=== PATIENT | female | born 2000 | race African-American/Black ===

== ENCOUNTER 2023-01-18 18:47 | Inpatient (IN) | payer MEDICAID ==
[2023-01-18 19:18] VITALS: BMI 43.7
[2023-01-18] MEDS ORDERED: Ibuprofen 800 MG TAB PO PRN (21:18)
[2023-01-18] MEDS ORDERED: Tranexamic Acid 1,000 MG in Sodium Chloride 0.9% 250 ML 250 ML IVPB PRN (21:18)
[2023-01-18] MEDS ORDERED: Butorphanol Tartrate 1 MG/ML VIAL SLOW IVP PRN (21:18)
[2023-01-18] MEDS ORDERED: Acetaminophen 500 MG TAB PO PRN (21:18)
[2023-01-18] MEDS ORDERED: Misoprostol 200 MCG TAB PR PRN (21:18)
[2023-01-18] MEDS ORDERED: Carboprost 250 MCG/ML AMP IM PRN (21:18)
[2023-01-18] MEDS ORDERED: Methylergonovine 0.2 MG/ML VIAL IM PRN (21:18)
[2023-01-18] MEDS ORDERED: Lidocaine 1% (PF) 30 ML VIAL SC PRN (21:18)
[2023-01-18] MEDS ORDERED: Promethazine HCl 25 MG/ML VIAL IM PRN (21:18)
[2023-01-18] MEDS ORDERED: hydrALAZINE 20 MG/ML VIAL SLOW IVP PRN (21:18)
[2023-01-18] MEDS ORDERED: Ondansetron PF 4 MG/2 ML Vial IVP PRN (21:18)
[2023-01-18] MEDS ORDERED: NS w/ Oxytocin 30 units 500 ML IV SCH ×2 (21:30)
[2023-01-18] MEDS ORDERED: Penicillin G Potassium 5 MILL.UNITS in Sodium Chloride 0.9% 100 ML IVPB SCH (23:45)
[2023-01-19] MEDS ORDERED: Penicillin G Potassium 5 MILL.UNITS VIAL ONE (00:16)
[2023-01-19 00:23] LABS: Anion Gap 15 mmol/L (10-20); BUN (Urea Nitrogen) 8 mg/dL (7.0-18.7); Calc. Creatinine Clearance 314 mL/min (70-130); Carbon Dioxide 18 mmol/L (22-29); Chloride 107 mmol/L (98-107); Potassium 4.1 mmol/L (3.5-5.1); Sodium 136 mmol/L (136-145)
[2023-01-19 00:24] LABS: ALT (SGPT) 10 U/L (8-55); AST (SGOT) 14 U/L (5-34); Albumin 3.5 g/dL (3.5-5.0); Alkaline Phosphatase 136 U/L (40-110); Bilirubin, Total 0.3 mg/dL (0.2-1.2); Calcium 9.3 mg/dL (7.8-10.44); Estimated GFR 130; Globulin 3.1 g/dL (2.4-3.5); Glucose 101 mg/dL (70-105); Protein, Total 6.6 g/dL (6.0-8.3)
[2023-01-19 00:34] LABS: Mean Corpuscular HGB CONC 32.9 g/dL (32.0-36.0); Mean Corpuscular Hemoglobin 28.4 pg (27.0-33.0); Mean Corpuscular Volume 86.3 fl (81.6-98.3); Mean Platelet Volume 11.2 fl (7.4-10.4); Platelet Count 315 10x3/uL (150-450); RBC Distribution Width 15.1 % (11.5-14.5); Red Blood Cell (RBC) Count 4.23 10x6/uL (3.90-5.03); White Blood Cell (WBC) Count 12.3 10x3/uL (3.5-10.5)
[2023-01-19 00:44] LABS: HBSAg Index 0.12 S/CO (0-0.99); HIV (1/2) Antibody/Antigen Non-Reactive (NonReactive); HIV 1/2 INDEX 0.09 S/CO (<1.00); Hep B Surf Ag Non-Reactive S/CO (NonReactive); Thyroid Stimulating Hormone 0.3799 uIU/mL (0.35-4.94)
[2023-01-19 00:46] LABS: Syphilis Antibody Nonreactive (Nonreactive); Syphilis Antibody Index 0.02 S/CO (<1.00 Non-Reactive)
[2023-01-19 01:14] LABS: Amphetamine Not Detected (NotDetected); Barbiturates Screen Not Detected (NotDetected); Benzodiazepine Screen Not Detected (NotDetected); Cocaine Metabolite Screen Not Detected (NotDetected); Methadone Not Detected (NotDetected); Methamphetamine Not Detected (NotDetected); Opiate Screen Not Detected (NotDetected); Oxycodone Screen Not Detected (NotDetected); Phencyclidine (PCP) Not Detected (NotDetected); THC/Cannabinoid Screen Not Detected (NotDetected); Tricyclic Screen Not Detected (NotDetected)
[2023-01-19 01:20] LABS: Creatinine, Urine 94.75 mg/dL (47-110); Protein, Urine Random Quant Less than 10 mg/dL (1-14)
[2023-01-19 01:48] LABS: SARS-CoV-2 NAA Rapid Test Not Detected (NotDetected)
[2023-01-19] MEDS ORDERED: CEFAZOLIN 2 GM VIAL ONE (02:09)
[2023-01-19] MEDS ORDERED: Famotidine/PF 20 mg/2ml Vial ONE (02:09)
[2023-01-19] MEDS ORDERED: Phenylephrine 40 MG/NS 250 ML 250 ML ONE (02:33)
[2023-01-19] MEDS ORDERED: Morphine PF 10 MG/10 ML VIAL ONE (02:33)
[2023-01-19] MEDS ORDERED: PHENYLEPHRINE-NS 100 MCG/ML 10 ML SYRINGE ONE ×2 (02:33→05:33)
[2023-01-19] MEDS ORDERED: Oxytocin 10 UNITS/ML VIAL ONE ×3 (02:33→06:08)
[2023-01-19] MEDS ORDERED: Ondansetron PF 4 MG/2 ML Vial ONE ×2 (02:33→05:30)
[2023-01-19] MEDS ORDERED: Ketorolac Tromethamine 30 MG/ML VIAL ONE (05:33)
[2023-01-19 06:11] LABS: HBSAg Index 0.14 S/CO (0-0.99); Hep B Surf Ag Non-Reactive S/CO (NonReactive)
[2023-01-19] MEDS ORDERED: Ketorolac Tromethamine 30 MG/ML VIAL IVP PRN (06:38)
[2023-01-19] MEDS ORDERED: Naloxone HCl 0.4 mg/ml Vial IV PRN ×2 (06:38→08:51)
[2023-01-19] MEDS ORDERED: diphenhydrAMINE 50 MG/ML VIAL IVP PRN ×2 (06:38→08:51)
[2023-01-19] MEDS ORDERED: Moisturizing Cream (Eucerin) 113 GM JAR TOP PRN ×2 (06:38→08:51)
[2023-01-19] MEDS ORDERED: Promethazine HCl 25 MG/ML VIAL IM PRN ×2 (06:38→08:51)
[2023-01-19] MEDS ORDERED: Ondansetron PF 4 MG/2 ML Vial IVP PRN ×3 (06:38→16:10)
[2023-01-19] MEDS ORDERED: Promethazine HCl 25 MG SUPP PR PRN ×2 (06:38→08:51)
[2023-01-19] MEDS ORDERED: Naloxone HCl 0.4 mg/ml Vial IVP PRN ×4 (06:38→08:51)
[2023-01-19] MEDS ORDERED: Communication Order-Pharmacy FS SCH ×2 (06:45→09:00)
[2023-01-19] MEDS ORDERED: Ondansetron HCl/PF 4 MG/2 ML Vial IVP PRN (08:51)
[2023-01-19] MEDS ORDERED: Fentanyl 100 MCG/2 ML VIAL SLOW IVP PRN (08:51)
[2023-01-19] MEDS ORDERED: Meperidine HCl/PF 25 MG/ML VIAL SLOW IVP PRN (08:51)
[2023-01-19] MEDS ORDERED: Ketorolac Tromethamine 30 MG/ML VIAL IVP SCH (09:00)
[2023-01-19] MEDS ORDERED: Meperidine HCl/PF 25 MG/ML VIAL ONE (09:28)
[2023-01-19] MEDS: Misoprostol 100 MCG TAB VAG SCH ×3 (12:33→16:23)
[2023-01-19] MEDS: Penicillin G 2.5 MILL.units 2.5 MILL.UNITS in Premix Bag 1 BAG IVPB SCH ×4 (12:36→16:25)
[2023-01-19] MEDS: Ketorolac Tromethamine 30 MG/ML VIAL IVP PRN ×2 (13:06→20:49)
[2023-01-19 14:04] LABS: Hep C IgG Ab Non-Reactive (NonReactive); Hep C Index 0.06 S/CO (0-0.79)
[2023-01-19] MEDS: Lactated Ringer's 1,000 ML IV SCH ×3 (15:55→16:24)
[2023-01-19] MEDS ORDERED: Misoprostol 200 MCG TAB PR PRN (16:10)
[2023-01-19] MEDS ORDERED: hydrALAZINE 20 MG/ML VIAL SLOW IVP PRN (16:10)
[2023-01-19] MEDS ORDERED: Boostrix 0.5 ML (Tdap) VIAL (>/=7 yrs of age) IM ONE (16:10)
[2023-01-19] MEDS ORDERED: Docusate 100 MG CAP PO SCH (16:30)
[2023-01-19] MEDS: HYDROcodone/Acetaminophen 5/325 mg Tablet PO PRN (20:50)
[2023-01-20 04:47] LABS: Hemoglobin 9.9 g/dL (12.0-15.5); Mean Corpuscular HGB CONC 32.1 g/dL (32.0-36.0); Mean Corpuscular Hemoglobin 28.2 pg (27.0-33.0); Mean Corpuscular Volume 87.7 fl (81.6-98.3); Platelet Count 282 10x3/uL (150-450); RBC Distribution Width 14.8 % (11.5-14.5); Red Blood Cell (RBC) Count 3.51 10x6/uL (3.90-5.03); White Blood Cell (WBC) Count 15.9 10x3/uL (3.5-10.5)
[2023-01-20] MEDS: HYDROcodone/Acetaminophen 5/325 mg Tablet PO PRN ×4 (05:24→22:17)
[2023-01-20] MEDS: Simethicone Chewable 80 MG TAB PO PRN (05:25)
[2023-01-20] MEDS: Ibuprofen 800 MG TAB PO SCH ×3 (05:25→22:17)
[2023-01-20] MEDS: Ferrous Sulfate 325 MG TAB PO SCH ×2 (08:36→22:18)
[2023-01-20] MEDS: Docusate 100 MG CAP PO SCH ×2 (08:36→22:18)
[2023-01-20] MEDS ORDERED: Ibuprofen 800 MG TAB PO PRN (13:00)
[2023-01-21] MEDS: Ibuprofen 800 MG TAB PO SCH ×3 (06:02→21:06)
[2023-01-21] MEDS: Simethicone Chewable 80 MG TAB PO PRN (06:02)
[2023-01-21] MEDS: HYDROcodone/Acetaminophen 5/325 mg Tablet PO PRN ×4 (06:02→17:38)
[2023-01-21] MEDS: Docusate 100 MG CAP PO SCH ×2 (08:19→21:06)
[2023-01-21] MEDS: Ferrous Sulfate 325 MG TAB PO SCH ×2 (08:19→21:06)
[2023-01-21] MEDS ORDERED: Calcium Carbonate 500 MG ChewTAB PO PRN (20:47)
[2023-01-22] MEDS ORDERED: Aspirin/APAP/Caffeine Tab (Excedrin Migraine) PO PRN (05:33)
[2023-01-22] MEDS: Ibuprofen 800 MG TAB PO SCH ×2 (05:37→17:02)
[2023-01-22] MEDS: Ferrous Sulfate 325 MG TAB PO SCH ×2 (09:02→21:38)
[2023-01-22] MEDS: Docusate 100 MG CAP PO SCH ×2 (09:03→21:38)
[2023-01-22] MEDS: HYDROcodone/Acetaminophen 5/325 mg Tablet PO PRN ×2 (10:06→18:49)
[2023-01-22] MEDS ORDERED: SUMAtriptan Succinate 6 MG/0.5 ML VIAL SC SCH (11:00)
[2023-01-22] MEDS ORDERED: Ketorolac Tromethamine 30 MG/ML VIAL IVP SCH (14:15)
[2023-01-22] MEDS ORDERED: Fioricet 325/50/40 mg Tablet PO PRN (16:31)
[2023-01-22 20:20] VITALS: TEMP 98.4
[2023-01-22] MEDS ORDERED: Ibuprofen 800 MG TAB PO SCH (22:00)
[2023-01-22 23:08] VITALS: BP 118/59
== END 2023-01-22 22:49 | disposition home or self-care (01) | DRG 787 ==
LOC: CSHLD/OP 18:47 → CSHLD 21:21 → CSHPP 01-19 10:35
PROVIDERS: ADMIT Emergency Medicine; ATTEND Emergency Medicine
PROC: 10D00Z1 Extraction of Products of Conception, Low, Open Approach (ICD-10-PCS; principal; 2023-01-19)
PROC: 4A133R1 Monitoring of Arterial Saturation, Peripheral, Percutaneous Approach (ICD-10-PCS; 2023-01-19)
DX: O76 Abnormality in fetal heart rate and rhythm complicating labor and delivery (principal); O72.1 Other immediate postpartum hemorrhage; F31.9 Bipolar disorder, unspecified; O77.0 Labor and delivery complicated by meconium in amniotic fluid; O69.81X0 Labor and delivery complicated by cord around neck, without compression, not applicable or unspecified; O99.214 Obesity complicating childbirth; E66.01 Morbid (severe) obesity due to excess calories; O89.4 Spinal and epidural anesthesia-induced headache during the puerperium; O99.344 Other mental disorders complicating childbirth; Z37.0 Single live birth; Z3A.40 40 weeks gestation of pregnancy; Z91.040 Latex allergy status; Z20.822 Contact with and (suspected) exposure to COVID-19; O99.284 Endocrine, nutritional and metabolic diseases complicating childbirth; E05.90 Thyrotoxicosis, unspecified without thyrotoxic crisis or storm
CPT/HCPCS: 36415; 51702; 76815; 76819; 80053; 80306; 82570; 82805; 84156; 84443; 85027; 86762; 86780; 86803; 86850; 86900; 86901; 87340; 87389; 99285; J1200; J1885; J2175; J2274; J2405; J2540; J2590; J3030; J7120; S0028; U0002